=== PATIENT | female | born 1960 | race Caucasian/White ===

== ENCOUNTER 2017-02-27 15:10 | Inpatient (IN) | payer OTHER, BC ==
[~2017-02-27] VITALS: Ht 167.6 cm; Wt 60.5 kg
[~2017-02-27 15:10] MED LIST: ARICEPT10 MG PO; DAILY VITAMIN1 EAC4 PO; DESYREL100 MG PO; LEXAPRO20 MG PO; PREMPRO 0.621 TABLE1 PO; RYTARY ER 36.21 EACH PO; SEROQUEL100 MG PO; SYNTHROID75 MCG PO; VISINE TEARS DR30 ML BOTH EYES; VITAMIN B COMPLEX; VITAMIN D1000 UNIT PO
[2017-02-27 17:26] LABS: ADD MIUA? YES; BILIRUBIN MODERATE; BLOOD NEGATIVE; COLOR AMBER ((YELLOW)); GLUCOSE (STRIP) NEGATIVE; KETONES 5; LEUKOCYTES NEGATIVE; NITRITE NEGATIVE; PROTEIN (STRIP) 100; SPECIFIC GRAVITY 1.029 (1.000-1.030)
[2017-02-27 17:49] LABS: CASTS PRESENT /LPF; EPITHELIAL CELLS RARE /HPF; MUCUS 4+ /LPF
[2017-02-27 17:50] LABS: COARSE GRANULAR CASTS 0-5 /LPF; FINE GRANULAR CASTS 0-5 /LPF; HYALINE CASTS 0-5 /LPF
[2017-02-27 17:51] LABS: BACTERIA RARE /HPF; RED BLOOD CELLS NONE SEEN /HPF (0-5); WHITE BLOOD CELLS 0-5 /HPF (0-5)
[2017-02-27 18:00] LABS: ICTOTEST NEGATIVE
[2017-02-27 18:08] LABS: HEMATOCRIT 32.1 % (36.0-46.0); MCH 30.6 PG (29.0-34.0); MCHC 32.7 G/DL (30.0-36.0); MCV 93.6 FL (83-99); MEAN PLAT.VOLUME 9.8 uM^3 (9.5-12.4); PLATELET COUNT 176 K/uL (156-360); RBC DIS.WIDTH-CV 12.9 % (11.8-14.6); RED BLOOD COUNT 3.43 M/uL (3.80-5.20); WHITE BLOOD COUNT 17.7 K/uL (4.1-10.2)
[2017-02-27 18:18] LABS: CHLORIDE 99 mEq/L (99-109); POTASSIUM 4.3 mEq/L (3.7-5.4); SODIUM 137 mEq/L (136-147)
[2017-02-27 18:20] LABS: GLUCOSE 113 mg/dL (70-99); INTER. NORMALIZED RATIO 1.3; PROTHROMBIN TIME 13.5 (9.2-11.2); PTT 26.1 (25-32)
[2017-02-27 18:21] LABS: ANION GAP 12 MEQ/L (2-14)
[2017-02-27 18:22] LABS: TOTAL BILIRUBIN 1.2 mg/dL (0.0-1.0)
[2017-02-27 18:24] LABS: ALKALINE PHOSPHATASE 733 IU/L (3-129); GFR ESTIMATE (CALCULATED) 54 mL/min/
[2017-02-27 18:25] LABS: UREA NITROGEN (BUN) 33 mg/dL (9-23)
[2017-02-27] MEDS ORDERED: SINEMET 25-1001 EACH PO (19:32)
[2017-02-27] MEDS ORDERED: VITAMIN D31000 UNI2 PO (19:33)
[2017-02-27] MEDS ORDERED: BUSPIRONE HCL5 MG PO (19:34)
[2017-02-27] MEDS ORDERED: ZYPREXA7.5 MG PO (19:35)
[2017-02-27] MEDS ORDERED: BRINTELLIX20 MG PO (19:36)
[2017-02-27] MEDS ORDERED: VITAMIN B-122500 MCG SL (19:37)
[2017-02-27] MEDS ORDERED: MEMANTINE HCL5 MG PO (19:38)
[2017-02-27] MEDS ORDERED: CLARITIN10 MG PO (19:38)
[2017-02-27] MEDS ORDERED: FLONASE16 G1 BOTH NARES (19:38)
[2017-02-27 22:03] VITALS: BP 137/78
[2017-02-28] VITALS: BP 115/63
[2017-02-28 01:26] LABS: TROP-I INTERPRETATION NEGATIVE; TROPONIN-I < 0.01 ng/mL (0.0-0.30)
[2017-02-28 04:00] VITALS: BP 142/82
[2017-02-28 05:55] LABS: TROP-I INTERPRETATION NEGATIVE; TROPONIN-I 0.01 ng/mL (0.0-0.30)
[2017-02-28 06:18] LABS: HEMATOCRIT 27.3 % (36.0-46.0); MCH 30.1 PG (29.0-34.0); MCHC 31.9 G/DL (30.0-36.0); MCV 94.5 FL (83-99); MEAN PLAT.VOLUME 9.9 uM^3 (9.5-12.4); PLATELET COUNT 147 K/uL (156-360); RBC DIS.WIDTH-SD 44.9 % (39-53); RED BLOOD COUNT 2.89 M/uL (3.80-5.20)
[2017-02-28 06:27] LABS: WHITE BLOOD COUNT 11.1 K/uL (4.1-10.2)
[2017-02-28 07:52] VITALS: BP 122/64
[2017-02-28 11:52] VITALS: BP 119/59
[2017-02-28 13:02] LABS: TROP-I INTERPRETATION NEGATIVE; TROPONIN-I < 0.01 ng/mL (0.0-0.30)
[2017-02-28 15:11] VITALS: BP 117/63
[2017-02-28 20:00] VITALS: BP 134/75
[2017-03-01] VITALS: BP 142/80
[2017-03-01 04:00] VITALS: BP 142/73
[2017-03-01 04:36] LABS: CHLORIDE 101 mEq/L (99-109); HEMATOCRIT 27.6 % (36.0-46.0); MCH 30.6 PG (29.0-34.0); MCV 92.9 FL (83-99); MEAN PLAT.VOLUME 9.4 uM^3 (9.5-12.4); PLATELET COUNT 206 K/uL (156-360); RBC DIS.WIDTH-CV 12.9 % (11.8-14.6); RBC DIS.WIDTH-SD 43.5 % (39-53); RED BLOOD COUNT 2.97 M/uL (3.80-5.20); SODIUM 135 mEq/L (136-147); WHITE BLOOD COUNT 11.9 K/uL (4.1-10.2)
[2017-03-01 04:37] LABS: GLUCOSE 121 mg/dL (70-99)
[2017-03-01 04:39] LABS: ANION GAP 9 MEQ/L (2-14)
[2017-03-01 04:41] LABS: GFR ESTIMATE (CALCULATED) > 59 mL/min/
[2017-03-01 04:42] LABS: UREA NITROGEN (BUN) 23 mg/dL (9-23)
[2017-03-01 08:04] VITALS: BP 119/69
[2017-03-01 10:27] VITALS: BP 128/69
[2017-03-01 15:25] VITALS: BP 130/74
[2017-03-01 17:52] VITALS: BP 131/76
== END 2017-03-01 19:18 | disposition hospice, home (50) | DRG 176 ==
LOC: EME 15:10 → 5SOUTH 20:12 → EDOF 20:12 → 5SOUTH 21:47
PROVIDERS: Emergency Medicine; Hospitalist; Physician Assistant Medical
PROC: 0FB13ZX Excision of Right Lobe Liver, Percutaneous Approach, Diagnostic (ICD-10-PCS; principal; 2017-03-01)
DX: I26.99 Other pulmonary embolism without acute cor pulmonale (principal); I82.421 Acute embolism and thrombosis of right iliac vein; I82.431 Acute embolism and thrombosis of right popliteal vein; I82.411 Acute embolism and thrombosis of right femoral vein; M84.58XA Pathological fracture in neoplastic disease, other specified site, initial encounter for fracture; G20 Parkinson's disease; F02.80 Dementia in other diseases classified elsewhere, unspecified severity, without behavioral disturbance, psychotic disturbance, mood disturbance, and anxiety; Z74.01 Bed confinement status; Z99.3 Dependence on wheelchair; Z51.5 Encounter for palliative care; C79.9 Secondary malignant neoplasm of unspecified site; C80.1 Malignant (primary) neoplasm, unspecified; C79.51 Secondary malignant neoplasm of bone
CPT/HCPCS: 70450; 71275; 74176; 74177; 77012; 80048; 80053; 81003; 84484; 85027; 85610; 85730; 87070; 87075; 87086; 87205; 93005; 93306; 93971; 99281; 99285; J1170; J2270; J3010; J7030